=== PATIENT | male | born 1950 | race Caucasian/White ===

== ENCOUNTER → 2017-06-30 | Outpatient (CLI) | payer MEDICARE, OTHER ==
[~2017-06-30] MED LIST: ADVIL 200MG TA200 MG PO; CHANTIX1 MG PO; PEPCID COMPLETE1 CTB PO; TYLENOL 500MG500 MG PO
== END ==
LOC: ZCOL.LAB 15:15
DX: Z01.812 Encounter for preprocedural laboratory examination (principal); Z86.14 Personal history of Methicillin resistant Staphylococcus aureus infection

== ENCOUNTER 2017-07-01 11:40 | Inpatient (IN) | payer MEDICARE, OTHER ==
[~2017-07-01] VITALS: Ht 182.9 cm; Wt 90.3 kg
[2017-08-26] VITALS (11 sets, daily range): BP systolic 118–163; BP diastolic 69–96; PULSE 63–83; TEMP 97.8–97.9
[2017-08-26] MEDS ORDERED: ZESTRIL 20MG TA20 MG PO (07:15)
[2017-08-26] MEDS ORDERED: PEPCID AC 10MG10 MG PO (07:16)
[2017-08-27 00:11] VITALS: BP 132/79; PULSE 86; TEMP 97.9
[2017-08-27 05:06] VITALS: BP 122/88; PULSE 64; TEMP 97.7
[2017-08-27 06:37] LABS: HEMOGLOBIN 12.2 g/dl (13.5-18.0)
[2017-08-27 07:06] LABS: HEMATOCRIT 36.6 % (42.0-52.0)
[2017-08-27 07:47] VITALS: BP 122/68; PULSE 80; TEMP 97.1
[2017-08-27 11:41] VITALS: BP 119/70; PULSE 68; TEMP 98.4
[2017-08-27 16:06] VITALS: BP 122/71; PULSE 64; TEMP 97.5
[2017-08-27 20:04] VITALS: BP 120/72; PULSE 83; TEMP 98.2
[2017-08-28 04:00] VITALS: BP 98/52; PULSE 90; TEMP 98.4
[2017-08-28 07:20] VITALS: BP 109/59; PULSE 87; TEMP 99.5
[2017-08-28] MEDS ORDERED: ASPI325T6 PO (07:26)
[2017-08-28] MEDS ORDERED: NORCO 325 MG-7.1 TAB PO (07:26)
[2017-08-28] MEDS ORDERED: ROXICODONE 55 MG/TAB PO (07:27)
[2017-08-28 11:47] VITALS: BP 102/54; PULSE 71; TEMP 97.7
[2017-08-28 16:16] VITALS: BP 132/68; PULSE 83; TEMP 98.5
[2017-08-28 19:53] VITALS: BP 103/57; PULSE 101; TEMP 98.3
[2017-08-29 00:14] VITALS: BP 109/55; PULSE 81; TEMP 98.2
[2017-08-29 04:11] VITALS: BP 111/62; PULSE 84; TEMP 98.1
[2017-08-29 07:46] VITALS: BP 115/62; PULSE 78; TEMP 98.3
[2017-08-29 11:44] VITALS: BP 145/72; PULSE 95; TEMP 97.3
== END 2017-08-29 16:25 | disposition home or self-care (01) | DRG 462 ==
LOC: INPTSU 08-26 06:48 → JCC 08-26 06:48
PROVIDERS: Orthopaedic Surgery
PROC: 0SRC0J9 Replacement of Right Knee Joint with Synthetic Substitute, Cemented, Open Approach (ICD-10-PCS; 2017-08-26)
PROC: 0SRD0J9 Replacement of Left Knee Joint with Synthetic Substitute, Cemented, Open Approach (ICD-10-PCS; principal; 2017-08-26 10:15)
DX: M17.0 Bilateral primary osteoarthritis of knee (principal); Z85.828 Personal history of other malignant neoplasm of skin; I10 Essential (primary) hypertension; F17.210 Nicotine dependence, cigarettes, uncomplicated
CPT/HCPCS: A4314; A9284; C1713; C1776; J0690; J1100; J1885; J2250; J2704; J7120

== ENCOUNTER → 2017-07-07 | Outpatient (CLI) | payer MEDICARE, OTHER | LOC: COL.RAD 09:16 | DX: Z01.818 Encounter for other preprocedural examination (principal); M17.0 Bilateral primary osteoarthritis of knee ==

== ENCOUNTER → 2017-08-19 | Outpatient (CLI) | payer MEDICARE, OTHER ==
[2017-08-19 16:07] LABS: HIV 1/2 Antibodies Non-Reactive; HIV-1p24 Antigen Non-Reactive
== END ==
LOC: COL.LAB 15:02
PROVIDERS: Orthopaedic Surgery
DX: Z01.812 Encounter for preprocedural laboratory examination (principal); M17.0 Bilateral primary osteoarthritis of knee

== ENCOUNTER 2018-02-19 09:03 | Day surgery (SDC) | payer MEDICARE, OTHER ==
[2018-02-19] VITALS (7 sets, daily range): BP systolic 135–154; BP diastolic 69–91; PULSE 46–52; TEMP 97.7–98.2
[~2018-02-19] VITALS: Ht 182.9 cm; Wt 90.1 kg
[~2018-02-19 09:03] MED LIST changes: +ASPI325T6 PO; +NORCO 325 MG-7.1 TAB PO; +PEPCID AC 10MG10 MG PO; +ROXICODONE 55 MG/TAB PO; +ZESTRIL 20MG TA20 MG PO
[2018-02-19] MEDS ORDERED: DESYREL 100MG100 MG PO (10:16)
[2018-02-19] MEDS ORDERED: ALEVE 220MG220 MG PO (10:17)
[2018-02-19] MEDS ORDERED: NORCO 325 MG-51 TAB PO (14:00)
== END 2018-02-19 15:40 | disposition home or self-care (01) ==
LOC: SDCO 09:03
DX: K40.90 Unilateral inguinal hernia, without obstruction or gangrene, not specified as recurrent (principal); I10 Essential (primary) hypertension; J44.9 Chronic obstructive pulmonary disease, unspecified; Z79.82 Long term (current) use of aspirin; Z96.653 Presence of artificial knee joint, bilateral; Z87.891 Personal history of nicotine dependence; Z85.828 Personal history of other malignant neoplasm of skin; Z86.14 Personal history of Methicillin resistant Staphylococcus aureus infection; Z80.0 Family history of malignant neoplasm of digestive organs; Z80.8 Family history of malignant neoplasm of other organs or systems; Z82.3 Family history of stroke; Z82.49 Family history of ischemic heart disease and other diseases of the circulatory system
CPT/HCPCS: C1781; J0690; J1100; J1885; J2270; J2405; J2704; J2710; J3010; J7120

== ENCOUNTER → 2018-06-24 | Outpatient (CLI) | payer MEDICARE, OTHER ==
[~2018-06-24] MED LIST changes: +ALEVE 220MG220 MG PO; +DESYREL 100MG100 MG PO; +NORCO 325 MG-51 TAB PO
== END ==
LOC: COL.RAD 08:52
DX: R16.0 Hepatomegaly, not elsewhere classified (principal); R94.5 Abnormal results of liver function studies

== ENCOUNTER → 2020-06-10 | Outpatient (CLI) | payer MEDICARE, OTHER ==
[2020-06-10 14:04] LABS: CLOSTRIDIUM DIFF A/B NEG; CLOSTRIDIUM DIFF A/B INTERP No C.diff present
== END ==
LOC: COL.LAB 11:01
DX: R19.7 Diarrhea, unspecified (principal)

== ENCOUNTER 2020-07-14 06:06 | Day surgery (SDC) | payer MEDICARE, OTHER ==
[~2020-07-14] VITALS: Ht 182.9 cm; Wt 88.0 kg
[2020-07-14 06:35] VITALS: BP 120/96; PULSE 77; TEMP 98.5
[2020-07-14] MEDS ORDERED: VIAGRA100 M1 PO (06:52)
[2020-07-14] MEDS ORDERED: TYLENOL 500MG500 MG PO (06:53)
[2020-07-14] MEDS ORDERED: PEPCID COMPLETE1 CTB PO (06:53)
[2020-07-14] MEDS ORDERED: BENICAR40 MG PO (06:54)
[2020-07-14] MEDS ORDERED: NORVASC 10MG10 MG PO (06:54)
[2020-07-14] MEDS ORDERED: ALEVE 220MG220 MG PO (06:54)
[2020-07-14] MEDS ORDERED: PROBIOTIC FORMU1 CAP PO (06:55)
[2020-07-14] MEDS ORDERED: VALTREX1 GM PO (06:55)
[2020-07-14] MEDS ORDERED: IMODIUM 2MG CAPS2 MG PO (06:56)
[2020-07-14] MEDS ORDERED: FLOMAX 0.40.4 MG/CAP PO (06:56)
[2020-07-14 07:20] VITALS: BP 121/81; PULSE 63; TEMP 98
[2020-07-14 07:30] VITALS: BP 121/77; PULSE 58
--- NOTE | 2020-07-14 07:36 | NUR ---
PT RETURNED FROM ENDO UNIT PROCEDURE ROOM PER CART. PT ALERT, DENIES PAIN OR NAUSEA. VSS STABLE. LUNGS CLEAR, HRR, BOWEL SOUNDS ACTIVE THROUGHOUT. PT REQUESTS ORANGE JUICE AND PUDDING, WILL CONT TO MONITOR.
--- NOTE | 2020-07-14 07:39 | NUR ---
PT TOLERATING FOOD AND FLUIDS AND DENIES PAIN, NAUSEA OR VOMITING. WILL CONT TO MONITOR.
[2020-07-14 07:45] VITALS: BP 128/81; PULSE 53
--- NOTE | 2020-07-14 08:19 | NUR ---
PT A/O, DENIES PAIN OR NAUSEA. DISMISSAL INSTRUCTIONS GIVEN. DENIES QUESTIONS PT TOLERATING FOOD AND FLUIDS. IV DC'D TO LEFT HAND WITHOUT DIFFICULTY. PT DISMISSED TO FAMILY VEHICLE. WAS DRIVING.
== END 2020-07-14 08:02 | disposition home or self-care (01) ==
LOC: SDCO 06:06
DX: K52.832 Lymphocytic colitis (principal); K57.30 Diverticulosis of large intestine without perforation or abscess without bleeding; U07.1 COVID-19; K21.9 Gastro-esophageal reflux disease without esophagitis; J44.9 Chronic obstructive pulmonary disease, unspecified; I10 Essential (primary) hypertension; M19.90 Unspecified osteoarthritis, unspecified site; F32.9 Major depressive disorder, single episode, unspecified; Z87.891 Personal history of nicotine dependence; Z96.653 Presence of artificial knee joint, bilateral; Z86.010 Personal history of colon polyps
CPT/HCPCS: J2704; J7120

== ENCOUNTER 2021-03-22 06:18 | Day surgery (SDC) | payer MEDICARE, OTHER ==
[~2021-03-22] VITALS: Ht 182.9 cm; Wt 90.4 kg
[~2021-03-22 06:18] MED LIST changes: +BENICAR40 MG PO; +FLOMAX 0.40.4 MG/CAP PO; +IMODIUM 2MG CAPS2 MG PO; +NORVASC 10MG10 MG PO; +PROBIOTIC FORMU1 CAP PO; +VALTREX1 GM PO; +VIAGRA100 M1 PO
[2021-03-22 07:02] VITALS: BP 121/81; PULSE 62; TEMP 98
[2021-03-22] MEDS ORDERED: NORCO 325 MG-51 TAB PO (10:38)
[2021-03-22 11:10] VITALS: BP 116/66; PULSE 50; TEMP 97.1
[2021-03-22 11:25] VITALS: BP 115/85; PULSE 64
[2021-03-22 11:40] VITALS: BP 126/74; PULSE 60
[2021-03-22 11:55] VITALS: BP 117/65; PULSE 62
[2021-03-22 12:10] VITALS: BP 124/66; PULSE 67
--- NOTE | 2021-03-22 12:54 | NUR ---
1110: Report recived from VARGAS Whitaker from PACU. Patient doing well, no nausea or vomiting. Reporting pain. Tolerating ice chips okay. Patient requesting [place] juice and pudding. brought back from waiting room. 1125: Patient tolerated food and drink. Pain medication given per MAR. Patient turned down from 3L O2 to 1L O2 via NC. Tolerating well. Given patient a blanket to split abdomen so he is able to take deep breathes. Patient states understanding. 1140: Patient reports doing well. Taken off supplemental oxygen and tolerating well. 1155: Patient reports doing well. Doing well off oxygen. Reports discomfort but toleratable. 1205: Went through discharge instructions with patient and his . Questions answered. IV taken out. Patient got dressed and went to restrooom. 1220: Patient escorted to [facility] entrance via wheelchair. Patient got into vehicle independently. Patient left in the care of his , Jun.
== END 2021-03-22 12:20 | disposition home or self-care (01) ==
LOC: SDCO 06:18
DX: K42.9 Umbilical hernia without obstruction or gangrene (principal); K43.9 Ventral hernia without obstruction or gangrene; K43.2 Incisional hernia without obstruction or gangrene; K21.9 Gastro-esophageal reflux disease without esophagitis; I10 Essential (primary) hypertension; K44.9 Diaphragmatic hernia without obstruction or gangrene; M17.0 Bilateral primary osteoarthritis of knee; Z79.899 Other long term (current) drug therapy; Z87.891 Personal history of nicotine dependence; Z79.1 Long term (current) use of non-steroidal anti-inflammatories (NSAID); Z85.828 Personal history of other malignant neoplasm of skin; Z79.82 Long term (current) use of aspirin
CPT/HCPCS: C1781; J0330; J1100; J1885; J2250; J2405; J2704; J3010; J7120

== ENCOUNTER → 2021-07-10 | Outpatient (CLI) | payer MEDICARE, OTHER | LOC: COL.RAD 07:27 | DX: Z12.2 Encounter for screening for malignant neoplasm of respiratory organs (principal); Z87.891 Personal history of nicotine dependence ==